=== PATIENT | female | born 1965 | race Caucasian/White ===

== ENCOUNTER 2017-02-08 17:24 | Emergency (ER) | payer OTHER ==
[~2017-02-08] VITALS: Ht 165.1 cm; Wt 96.4 kg
[2017-02-08 17:26] VITALS: TEMP 36.9; Ht 165.1 cm; Wt 96.4 kg
[2017-02-08] MEDS ORDERED: METHYLPREDNISOLONE 125 MG VIAL IM STA (17:42)
[2017-02-08] MEDS ORDERED: KETOROLAC TROMETHAMINE 60 MG/2 ML VIAL IM STA (17:42)
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
[2017-02-08] MEDS ORDERED: ASPI81TA28 PO (18:14)
[2017-02-08] MEDS ORDERED: LISI-461 PO (18:14)
[2017-02-08] MEDS ORDERED: METH4PAK PO (18:42)
[2017-02-08 18:49] VITALS: BP 128/65; PULSE 83; O2SAT 99
== END 2017-02-08 18:50 | disposition home or self-care (01) ==
LOC: C.EDB 17:25 → C.EDA 18:50
DX: M54.5 Low back pain (principal); M53.3 Sacrococcygeal disorders, not elsewhere classified; J45.909 Unspecified asthma, uncomplicated; F17.200 Nicotine dependence, unspecified, uncomplicated; Z79.82 Long term (current) use of aspirin; Z79.899 Other long term (current) drug therapy; Z88.2 Allergy status to sulfonamides; Z83.3 Family history of diabetes mellitus; Z82.49 Family history of ischemic heart disease and other diseases of the circulatory system

== ENCOUNTER 2017-02-10 07:34 | Emergency (ER) | payer OTHER ==
[~2017-02-10] VITALS: Ht 165.1 cm; Wt 95.5 kg
[~2017-02-10 07:34] MED LIST: ASPI81TA28 PO; LISI-461 PO; METH4PAK PO
[2017-02-10 07:38] VITALS: TEMP 36.7; Ht 165.1 cm; Wt 95.5 kg
[2017-02-10] MEDS ORDERED: ALUMINUM/MAGNESIUM SUSP 30 ML UDC PO STA (08:05)
[2017-02-10] MEDS ORDERED: LIDOCAINE HCL 2% VISC SOLN 20 ML UDC PO STA (08:05)
--- NOTE | 2017-02-10 08:17 | EMERGENCY ROOM VISIT NOTE ---
History Report prepared by Kee: Lilo Garrett Under the Supervision of: Dr. Sarika Templeton M.D. First contact with patient: 07:38 Chief Complaint: CARDIAC ASSESSMENT Stated Complaint: CHEST DISCOMFORT Nursing Triage Summary: PT reportst at 0700 she devloped mid sternal chest discomfort sx lasted approx 15 mins "I think it was an anxiety reaction to the prednisone I am on. It was like I could feel it coming on but I couldn't stop it" Pt tearful on arrival History of Present Illness The patient is a 51 year old female who presents to the Emergency Room for a cardiac assessment of symptoms that started RECEPTIONIST AIRLINE LOUNGE. The patient came to the ED via ambulance from home. The patient states that she was getting ready for work when she felt like she was having an anxiety attack. The patient states that she experienced palpitations and it felt like her heart was "fast and beating through her chest." The palpitations lasted about 15 minutes. She adds that she smoked a cigarette this morning prior to her symptoms occurring. The patient states that she was just getting ready for work when her symptoms occurred and she was not experiencing anxiety. The patient states that she feels well now. She denies shortness of breath and lower extremity pain or edema. The patient is on a Medrol dose pack for inflammation in her back. She received a shot of prednisone in the ED for the inflammation 2 days ago. The patient took the first pill of the Medrol dose pack this morning. She states that she was going to take 2 pills in the morning, 1 at lunch time, 2 at dinner time, and 1 before bed. The patient denies previous surgeries, any history of blood clots, and any recent trips. Source of History: patient Onset: RECEPTIONIST AIRLINE LOUNGE Position: chest Quality: other (palpitations) Timing: resolved Associated Symptoms: No SOB Note: no lower extremity pain or edema Review of Systems See HPI for pertinent positives & negatives. A total of 10 systems reviewed and were otherwise negative. Past Medical & Surgical Medical Problems: (1) Asthma Family History Diabetes mellitus Heart disease Hypertension Social History Smoking Status: Current Every Day Smoker Alcohol Use: occasionally Drug Use: none Marital Status: in relationship Housing Status: lives with significant other Occupation Status: unemployed Current/Historical Medications Scheduled Aspirin (Aspirin Ec), 81 MG PO QPM Lisinopril (Zestril), 10 MG PO QAM Methylprednisolone (Medrol Dosepak), 0 PO DAILY Allergies Coded Allergies: Sulfa Antibiotics (Unverified Allergy, Intermediate, ANXIETY ATTACK, ) Physical Exam Vital Signs Date Time Temp Pulse Resp B/P (MAP) Pulse Ox O2 Delivery O2 Flow Rate FiO2 02/10/17 10:26 65 20 107/52 97 02/10/17 09:35 59 20 118/73 97 Room Air 02/10/17 07:45 77 02/10/17 07:38 36.7 82 20 155/81 99 Room Air Physical Exam Vital signs reviewed. General: Well-appearing female, in no significant distress. HEENT: No scleral icterus, PERRLA, neck supple. Atraumatic. Cardiovascular: Regular rate and rhythm, no extra sounds. Pulmonary: Clear to auscultation bilaterally, normal work of breathing. Abdomen: Soft, nontender, nondistended, positive bowel sounds. Musculoskeletal: Atraumatic, no peripheral edema. Neurologic: Patient awake alert and oriented x 3 Skin: Warm, dry, no rash Medical Decision & Procedures ER Provider Diagnostic Interpretation: Radiology results as stated below per my review and radiologist interpretation: CHEST ONE VIEW PORTABLE FINDINGS: Cardiomediastinal silhouette normal. A few punctate hyperdensities in the right lower lung, possibly old granulomatous disease. Lungs and pleural spaces otherwise clear. Osseous structures and upper abdomen normal. IMPRESSION: 1. No acute cardiopulmonary disease. Electronically signed by: Rodney Barbour M.D. 02/10/2017 8:30 AM Dictated Date/Time: 02/10/2017 8:29 AM Laboratory Results 02/10/17 07:45 Red Blood Count 4.75, Mean Corpuscular Volume 88.0, Mean Corpuscular Hemoglobin 28.6, Mean Corpuscular Hemoglobin Concent 32.5, Mean Platelet Volume 9.6, Neutrophils (%) (Auto) 84.7, Lymphocytes (%) (Auto) 8.5, Monocytes (%) (Auto) 6.0, Eosinophils (%) (Auto) 0.1, Basophils (%) (Auto) 0.1, Neutrophils # (Auto) 14.66, Lymphocytes # (Auto) 1.47, Monocytes # (Auto) 1.04, Eosinophils # (Auto) 0.01, Basophils # (Auto) 0.01 02/10/17 07:45 Test 02/10/17 07:45 02/10/17 09:50 White Blood Count 17.29 K/uL (4.8-10.8) Red Blood Count 4.75 M/uL (4.2-5.4) Hemoglobin 13.6 g/dL (12.0-16.0) Hematocrit 41.8 % (37-47) Mean Corpuscular Volume 88.0 fL (80-100) Mean Corpuscular Hemoglobin 28.6 pg (25-34) Mean Corpuscular Hemoglobin Concent 32.5 g/dl (32-36) Platelet Count 399 K/uL (130-400) Mean Platelet Volume 9.6 fL (7.4-10.4) Neutrophils (%) (Auto) 84.7 % Lymphocytes (%) (Auto) 8.5 % Monocytes (%) (Auto) 6.0 % Eosinophils (%) (Auto) 0.1 % Basophils (%) (Auto) 0.1 % Neutrophils # (Auto) 14.66 K/uL (1.4-6.5) Lymphocytes # (Auto) 1.47 K/uL (1.2-3.4) Monocytes # (Auto) 1.04 K/uL (0.11-0.59) Eosinophils # (Auto) 0.01 K/uL (0-0.5) Basophils # (Auto) 0.01 K/uL (0-0.2) RDW Standard Deviation 44.1 fL (36.4-46.3) RDW Coefficient of Variation 13.6 % (11.5-14.5) Immature Granulocyte % (Auto) 0.6 % Immature Granulocyte # (Auto) 0.10 K/uL (0.00-0.02) Anion Gap 6.0 mmol/L (3-11) Est Creatinine Clear Calc Drug Dose 83.6 ml/min Estimated GFR () 83.6 Estimated GFR (Non- 72.2 BUN/Creatinine Ratio 23.8 (10-20) Calcium Level 9.1 mg/dl (8.5-10.1) Magnesium Level 2.0 mg/dl (1.8-2.4) Total Bilirubin 0.2 mg/dl (0.2-1) Direct Bilirubin < 0.1 mg/dl (0-0.2) Aspartate Amino Transf (AST/SGOT) 9 U/L (15-37) Alanine Aminotransferase (ALT/SGPT) 20 U/L (12-78) Alkaline Phosphatase 56 U/L (45-117) Total Creatine Kinase 46 U/L (26-192) Creatine Kinase MB 0.7 ng/ml (0.5-3.6) Creatine Kinase MB Ratio 1.5 (0-3.0) Total Protein 7.8 gm/dl (6.4-8.2) Albumin 3.5 gm/dl (3.4-5.0) Bedside Troponin I < 0.030 ng/ml (0-0.045) Laboratory results per my review. Medications Administered Medications (Trade) Dose Ordered Sig/Vini Route Start Time Stop Time Status Last Admin Dose Admin Lidocaine HCl (Viscous Lidocaine 2% Soln) 10 ml NOW STAT PO 02/10/17 08:05 02/10/17 08:08 DC 02/10/17 08:19 10 ML Al Hydroxide/Mg Hydroxide (Maalox Susp) 30 ml NOW STAT PO 02/10/17 08:05 02/10/17 08:08 DC 02/10/17 08:19 30 ML ECG Indication: palpitations Rate (beats per minute): 75 Rhythm: normal sinus Findings: no acute ischemic change, no ectopy ED Course 0802: Past medical records reviewed. The patient was evaluated in room B4. A complete history and physical examination was performed. 0805: Ordered Maalox Susp 30 ml PO, Lidocaine HCl 10 ml PO 0926: I reassessed the patient. She is having a repeat troponin drawn now. 1002: Upon reevaluation, the patient appeared to have improvement of her symptoms. I discussed findings with her. She verbalized agreement of the treatment plan. She was discharged home. Medical Decision Differential diagnoses includes acute coronary syndrome, pulmonary embolus, aortic dissection, musculoskeletal pain, pneumonia, pleural effusion, pneumothorax, gastritis, peptic ulcer disease. Medication Reconciliation: I attest that I have personally reviewed the patient' s current medication list. Blood Pressure Screening: Patient was found to have normal blood pressure on screening and does not require follow-up. This patient was evaluated and appears to be in no significant distress. IV access was obtained and laboratory work was drawn. The patient was placed on the data analytics analyst and found to be in a normal sinus rhythm. She was given a GI cocktail. EKG reveals no evidence of acute ischemia. Chest x-ray is clear. The patient did have some relief of her symptoms. A repeat troponin level was obtained and is negative. I suspect this is secondary to her Medrol Dosepak. She was advised to use Pepcid twice a day and she will stop the Medrol at her choosing. The patient will follow-up with her primary care physician this week and return to the ER for worsening of symptoms or any medical concerns. Impression Primary Impression: Palpitations Additional Impression: Medication side effect Scribe Attestation The scribe's documentation has been prepared under my direction and personally reviewed by me in its entirety. I confirm that the note above accurately reflects all work, treatment, procedures, and medical decision making performed by me. Departure Information Dispostion Home / Self-Care Referrals Sabi Berg M.D. (MEDICAL) (PCP) Forms IMPORTANT VISIT INFORMATION Patient Instructions [facility] Additional Instructions Stop taking the Medrol Dosepak. Pepcid 20 mg twice daily for 7 days, then as needed. Avoid ibuprofen, Aleve and aspirin. Do not drink alcohol, minimize coffee. Drink plenty of clear fluids. Return to the ED for worsening of symptoms or any medical concerns. Problem Qualifiers Additional Impression: Medication side effect Encounter type: initial encounter Qualified Codes: T88.7XXA - Unspecified adverse effect of drug or medicament, initial encounter
[2017-02-10 08:24] LABS: BASO % 0.1 %; BASO ABS # 0.01 K/uL (0-0.2); COMPLETE YES; EOS % 0.1 %; HEMATOCRIT 41.8 % (37-47); IG% 0.6 %; LYMPH % 8.5 %; LYMPH ABS # 1.47 K/uL (1.2-3.4); MEAN CORPUSCULAR HEMOGLOBIN 28.6 pg (25-34); MEAN CORPUSCULAR HGB CONC 32.5 g/dl (32-36); MEAN PLATELET VOLUME 9.6 fL (7.4-10.4); NEUT % 84.7 %; PLATELET COUNT 399 K/uL (130-400); RED BLOOD COUNT 4.75 M/uL (4.2-5.4); WHITE BLOOD COUNT 17.29 K/uL (4.8-10.8)
--- NOTE | 2017-02-10 08:31 | DIAGNOSTIC IMAGING REPORT ---
CHEST ONE VIEW PORTABLE CLINICAL HISTORY: 51 years-old Female presenting with CP, midsternal chest discomfort lasted approximately 15 minutes. TECHNIQUE: Portable upright AP view of the chest was obtained. COMPARISON: None. FINDINGS: Cardiomediastinal silhouette normal. A few punctate hyperdensities in the right lower lung, possibly old granulomatous disease. Lungs and pleural spaces otherwise clear. Osseous structures and upper abdomen normal. IMPRESSION: 1. No acute cardiopulmonary disease. Electronically signed by: Rodney Barbour M.D. 02/10/2017 8:30 AM Dictated Date/Time: 02/10/2017 8:29 AM
[2017-02-10 08:37] LABS: ALT/SGPT 20 U/L (12-78); AST/SGOT 9 U/L (15-37); BLOOD UREA NITROGEN 22 mg/dl (7-18); BUN/CREATININE RATIO 23.8 (10-20); CALCIUM 9.1 mg/dl (8.5-10.1); CARBON DIOXIDE 30 mmol/L (21-32); CHLORIDE 105 mmol/L (98-107); CREATININE 0.93 mg/dl (0.60-1.20); GLUCOSE 109 mg/dl (70-99); SODIUM 141 mmol/L (136-145)
[2017-02-10 08:42] LABS: ALKALINE PHOSPHATASE 56 U/L (45-117); CKMB/CK RATIO 1.5 (0-3.0)
[2017-02-10 10:26] VITALS: BP 107/52; PULSE 65; O2SAT 97
== END 2017-02-10 10:27 | disposition home or self-care (01) ==
LOC: EDBD 07:34 → C.EDB 07:36
DX: R00.2 Palpitations (principal); T88.7XXA Unspecified adverse effect of drug or medicament, initial encounter; X58.XXXA Exposure to other specified factors, initial encounter; J45.909 Unspecified asthma, uncomplicated; Z83.3 Family history of diabetes mellitus; Z82.49 Family history of ischemic heart disease and other diseases of the circulatory system; F17.200 Nicotine dependence, unspecified, uncomplicated; Z79.82 Long term (current) use of aspirin

== ENCOUNTER 2022-02-15 15:53 | Observation (INO) ==
[2022-02-15 17:48] LABS: Hematocrit (blood only) 42.1 % (34.1-44.9); Hemoglobin 13.8 g/dl (12.0-16.0); Mean Corpuscular Hemoglobin 29.2 pg (25.0-34.0); Mean Corpuscular Hgb Conc 32.8 g/dL (32.0-36.0); Mean Platelet Volume 9.6 fL (9.4-12.3); Platelet Count 298 K/uL (130-400); RDW Coefficient of Variation 13.4 % (11.5-14.5); RDW Standard Deviation 43.7 fL (36.4-46.3); Red Blood Count 4.73 M/uL (3.93-5.22); White Blood Count 6.88 K/ul (4.8-10.8)
[2022-02-15 18:12] LABS: Appearance Urine Clear (Clear); Bacteria Urine Automated Negative (Negative); Bilirubin Urine Negative (Negative); Blood Urine Trace (Negative); Color Urine Yellow; Glucose Urine UA Negative (Negative); Ketones Urine Negative (Negative); Leukocyte Esterase Urine Negative (Negative); Nitrite Urine Negative (Negative); Protein Urine Negative (Negative); RBC Urine Automated 0-4 /hpf (0-4); Specific Gravity Urine 1.005 (1.000-1.030); Urobilinogen Urine Negative (Negative); WBC Urine Automated 0 /hpf (0-5); pH Urine 5.5 (4.5-7.5)
[2022-02-15 18:15] LABS: Albumin Globulin Ratio 1.1 (0.9-2); Albumin Level 3.5 gm/dl (3.4-5.0); BUN Creatinine Ratio 18.7 (10-20); Bilirubin,Total 0.2 mg/dl (0.2-1.0); Calcium 8.3 mg/dl (8.5-10.1); Creatinine Clr Calc Pharmacy 72.8 ml/min; Est GFR (African American) 82.9 ml/min; Est GFR (Non-African American) 71.5 ml/min; Globulin 3.1 gm/dl (2.5-4.0); Potassium 3.9 mmol/L (3.5-5.1); Total Protein 6.6 gm/dl (6.0-8.3)
--- NOTE | 2022-02-15 18:32 | Emergency Department Note ---
Impression & Plan Acute hypotension, Acute right flank pain, Dizziness, COVID-19 ED Provider Note INFORMANT: Patient ED PROVIDER(S): Stoney Meier MD CHIEF COMPLAINT: Dizziness PLAN: Disposition: Admitted Condition: Good Outpatient prescription management: none Referral: None MEDICAL DECISION MAKING: Patient was presented due to dizziness. She is found to have hypotension. She had some nausea and minimal diarrhea. By history there is no significant points that were consistent with significant volume loss. She was orthostatic. She was hydrated. She was still experiencing mild hypotension. Additional fluids were given. The patient's CBC and chemistry panel were unremarkable. Urinalysis revealed no significant signs of infection. Troponin and D-dimer were negative. Patient had a COVID test performed and this was positive. Chest x-ray was unremarkable. The patient appears to be dealing with a COVID illness and has hypotension. Other diagnostic testing did not reveal any obvious etiology. Further management will be necessary in the hospital. Consultation was made with the [facility] service. Patient was evaluated in the ER and admitted for further management Triage Nursing notes reviewed and agree them. Vital Signs: reviewed and remarkable for hypotension Differential diagnosis: Renal colic, UTI, appendicitis, diverticulitis, mesenteric ischemia, aortic pathology, infections, inflammatory bowel disease, PUD, biliary pathology, as well as other pathologies. Diagnostics interpreted by me: EC Lead ECG performed and revealed Normal sinus rhythm at 70, left axis deviation, QRS normal. No elevation or depression. No PACs or PVCs Cardiac Monitoring: Cardiac monitoring ordered by me: The patient was placed on continuous cardiac monitoring and observed. It revealed a normal sinus rhythm at 80 beats per minute without ectopy or evidence of dysrhythmia. Imaging studies: Chest x-ray. Findings: A chest x-ray was performed and revealed no pneumothorax, effusion, infiltrate, pulmonary edema, free air under the diaphragm, or wide mediastinum. Impression: No acute disease. HPI: The patient is a 56 year old female who presents to the Emergency Room with complaints of low blood pressure. This started early this week and is persisting. The patient also notes the following associated symptoms, dizziness, right flank pain, nausea, diarrhea. The patient has seen urgent care and was started on augmentin for suspected UTI but cx was negative and was told to stop. Current pain is rated as 0/10. Pt denies LOC, headache, fevers, chills, diaphoresis, visual changes, neck pain, chest pain, breathing difficulties, vomiting,back pain, melena, hematochezia, other urinary symptoms, numbness, weakness, lymphadenopathy, rash, or other complaints. ROS: See above HPI for pertinent positives & negatives. A total of 10 systems reviewed and were otherwise negative. PAST MEDICAL HISTORY:See Below , asthma PAST SURGICAL HISTORY:See Below, FAMILY HISTORY:See Below SOCIAL HISTORY:See Below, employed HOME MEDICATIONS:See Below ALLERGIES:See Below VITALS:See Below PHYSICAL EXAMINATION: GENERAL: Awake, tired-appearing, in no distress HENT: Normocephalic, atraumatic. Oropharynx unremarkable. EYES: Normal conjunctiva. Sclera non-icteric. NECK: Inspection normal. Non-tender. Supple. No nuchal rigidity. FROM. No masses. RESPIRATORY: Clear to auscultation. No wheezes. No rales. Normal respiratory effort. CARDIAC: Normal rate. Normal rhythm. No murmurs. No rubs. Extremities warm and well perfused. Pulses equal. No JVD. GI: Soft, non-distended. Right flank tenderness to palpation. No rebound or guarding. No masses. RECTAL: Deferred. MUSCULOSKELETAL: Atraumatic. Chest examination reveals no tenderness. The back is symmetrical on inspection without obvious abnormality. There is no CVA tenderness to palpation. No joint edema. LOWER EXTREMITIES: Calves are equal size bilaterally and non-tender. No edema. No discoloration. NEURO: Normal sensorium. No sensory or motor deficits noted. SKIN: No rash or jaundice noted. Stoney Meier MD Past Med/Surg History Medical History Asthma Hypertension Hyperventilation syndrome Migraine Family History Other No pertinent family history in first degree relatives Social History Smoking Status: Current every day smoker Cigarettes Per Day: 10; Second Hand Exposure: No; Do You Dip or Chew Tobacco: No; Tobacco Cessation Education Requested by Patient: No Hx Alcohol Use: Yes Alcohol type: beer Hx Substance Use: No Preferred Language: Irish Communication Ability: Effective Export Specialist Required: No Beliefs That Will Affect Care: None Current Living Situation: Alone Other Information That Helps Us Care for You: No Feels Safe at Home: Yes Safety Concerns: Feels Safe At This Time Assistive Devices: Denture - Upper Assistive Devices Comment: Partial upper dentures Allergies Allergies Allergy/AdvReac Type Severity Reaction Status Date / Time Sulfa (Sulfonamide Allergy Intermediate ANXIETY Unverified 02/15/22 21:29 Antibiotics) ATTACK Home Meds Home Medications Medication Instructions Recorded Confirmed albuterol sulfate 90 mcg/actuation 2 puff inhalation Q6H PRN 03/05/19 02/15/22 aerosol inhaler (Ventolin HFA) Shortness Of Breath Or Wheezing aspirin 81 mg tablet,delayed 81 mg PO QAM 03/05/19 02/15/22 release fluticasone propionate 50 1 spray intranasal QA 03/05/19 02/15/22 mcg/actuation nasal spray,suspension (Flonase Allergy Relief) ibuprofen 200 mg tablet (Advil) 200 - 400 mg PO Q6H PRN Pain 03/05/19 02/15/22 lisinopril 10 mg tablet 20 mg PO QAM 03/05/19 02/15/22 multivitamin 1 tab PO QAM 03/05/19 02/15/22 ipratropium 0.5 mg-albuterol 3 mg 3 ml inhalation QID PRN Shortness 02/15/22 (2.5 mg base)/3 mL nebulization Of Breath Or Wheezing soln lisinopril 5 mg tablet 5 mg PO QAM 02/15/22 02/15/22 Results & Data (ED) Vital Signs Vital Signs - 24 hr 02/15/22 15:57 02/15/22 18:19 02/15/22 18:55 Temperature 36.4 C L Temperature Source Temporal Artery Scan Pulse Rate - Lying 68 Pulse Rate - Sitting 68 Pulse Rate - Standing 76 Pulse Rate 94 H Pulse Rate [Right Finger] 74 Respiratory Rate 18 18 Respiratory Effort / Characteristics Non-Labored Non-Labored Respiratory Depth Normal Normal Blood Pressure - Lying 98/56 L Blood Pressure - Sitting 89/57 L Blood Pressure- Standing 87/55 L Blood Pressure 131/85 Blood Pressure [Right Arm] 94/57 L Blood Pressure Mean 100 Blood Pressure Mean [Right Arm] 69 Pulse Oximetry 98 97 Oxygen Delivery Method Room Air Room Air Sepsis Recent Fever Within 48 Hours No Sepsis New/Unexplained Change in Mental Status No Sepsis Action Taken by Nursing No Action Required 02/15/22 20:30 Temperature Temperature Source Pulse Rate - Lying Pulse Rate - Sitting Pulse Rate - Standing Pulse Rate Pulse Rate [Right Finger] Respiratory Rate Respiratory Effort / Characteristics Respiratory Depth Blood Pressure - Lying Blood Pressure - Sitting Blood Pressure- Standing Blood Pressure Blood Pressure [Right Arm] 88/55 L Blood Pressure Mean Blood Pressure Mean [Right Arm] 66 Pulse Oximetry Oxygen Delivery Method Sepsis Recent Fever Within 48 Hours Sepsis New/Unexplained Change in Mental Status Sepsis Action Taken by Nursing Laboratory Data Result diagrams: 02/15/22 17:30 02/15/22 17:30 Lab Results 02/15/22 02/15/22 02/15/22 Range/Units 17:30 17:30 17:30 WBC 6.88 (4.8-10.8) K/ul RBC 4.73 (3.93-5.22) M/uL Hgb 13.8 (12.0-16.0) g/dl Hct 42.1 (34.1-44.9) % MCV 89.0 (80.0-100.0) fL MCH 29.2 (25.0-34.0) pg MCHC 32.8 (32.0-36.0) g/dL RDW Std Deviation 43.7 (36.4-46.3) fL RDW Coeff of Bladimir 13.4 (11.5-14.5) % Plt Count 298 (130-400) K/uL MPV 9.6 (9.4-12.3) fL Immature Gran % (Auto) 0.4 % Neut % (Auto) 55.5 % Lymph % (Auto) 32.4 % [place] % (Auto) 11.0 % Eos % (Auto) 0.4 % Baso % (Auto) 0.3 % Neut # (Auto) 3.81 (1.4-6.5) K/uL Lymph # (Auto) 2.23 (1.2-3.4) K/uL [place] # (Auto) 0.76 (0.24-0.82) K/uL Eos # (Auto) 0.03 (0-0.50) K/uL Baso # (Auto) 0.02 (0-0.2) K/uL Immature Gran # (Auto) 0.03 H (0.00-0.02) K/uL Tear Drop Cells 1+ Echinocytes 1+ D-Dimer (0-500) ug/L FEU Sodium 133 L (136-145) mmol/L Potassium 3.9 (3.5-5.1) mmol/L Chloride 103 (98-107) mmol/L Carbon Dioxide 22 (21-32) mmol/L Anion Gap 8 (3-11) BUN 17 (6-23) mg/dl Creatinine 0.91 (0.6-1.2) mg/dl Est Cr Clr Drug Dosing 72.8 ml/min Est GFR ( Amer) 82.9 ml/min Est GFR (Non-Af Amer) 71.5 ml/min BUN/Creatinine Ratio 18.7 (10-20) Glucose 108 H (70-99(Fasting)) mg/dl Calcium 8.3 L (8.5-10.1) mg/dl Total Bilirubin 0.2 (0.2-1.0) mg/dl AST 22 (13-39) U/L ALT 14 (7-52) U/L Alkaline Phosphatase 60 (34-104) U/L Troponin I High Sens (0-14) pg/ml Total Protein 6.6 (6.0-8.3) gm/dl Albumin 3.5 (3.4-5.0) gm/dl Globulin 3.1 (2.5-4.0) gm/dl Albumin/Globulin Ratio 1.1 (0.9-2) Urine Color Yellow Urine Appearance Clear (Clear) Urine pH 5.5 (4.5-7.5) Ur Specific [place] 1.005 (1.000-1.030) Urine Protein Negative (Negative) Urine Glucose (UA) Negative (Negative) Urine Ketones Negative (Negative) Urine Blood Trace H (Negative) Urine Nitrite Negative (Negative) Urine Bilirubin Negative (Negative) Urine Urobilinogen Negative (Negative) Ur Leukocyte Esterase Negative (Negative) Urine WBC (Auto) 0 (0-5) /hpf Urine RBC (Auto) 0-4 (0-4) /hpf U Hyaline Cast (Auto) 1-5 (0-5) /lpf U Epithel Cells (Auto) 10-20 H (0-5) /lpf Urine Bacteria (Auto) Negative (Negative) SARS-CoV-2, RNA, NAAT (NEGATIVE) 02/15/22 02/15/22 02/15/22 Range/Units 18:57 18:57 19:20 WBC (4.8-10.8) K/ul RBC (3.93-5.22) M/uL Hgb (12.0-16.0) g/dl Hct (34.1-44.9) % MCV (80.0-100.0) fL MCH (25.0-34.0) pg MCHC (32.0-36.0) g/dL RDW Std Deviation (36.4-46.3) fL RDW Coeff of Bladimir (11.5-14.5) % Plt Count (130-400) K/uL MPV (9.4-12.3) fL Immature Gran % (Auto) % Neut % (Auto) % Lymph % (Auto) % [place] % (Auto) % Eos % (Auto) % Baso % (Auto) % Neut # (Auto) (1.4-6.5) K/uL Lymph # (Auto) (1.2-3.4) K/uL [place] # (Auto) (0.24-0.82) K/uL Eos # (Auto) (0-0.50) K/uL Baso # (Auto) (0-0.2) K/uL Immature Gran # (Auto) (0.00-0.02) K/uL Tear Drop Cells Echinocytes D-Dimer 410 (0-500) ug/L FEU Sodium (136-145) mmol/L Potassium (3.5-5.1) mmol/L Chloride (98-107) mmol/L Carbon Dioxide (21-32) mmol/L Anion Gap (3-11) BUN (6-23) mg/dl Creatinine (0.6-1.2) mg/dl Est Cr Clr Drug Dosing ml/min Est GFR ( Amer) ml/min Est GFR (Non-Af Amer) ml/min BUN/Creatinine Ratio (10-20) Glucose (70-99(Fasting)) mg/dl Calcium (8.5-10.1) mg/dl Total Bilirubin (0.2-1.0) mg/dl AST (13-39) U/L ALT (7-52) U/L Alkaline Phosphatase (34-104) U/L Troponin I High Sens 8.1 (0-14) pg/ml Total Protein (6.0-8.3) gm/dl Albumin (3.4-5.0) gm/dl Globulin (2.5-4.0) gm/dl Albumin/Globulin Ratio (0.9-2) Urine Color Urine Appearance (Clear) Urine pH (4.5-7.5) Ur Specific [place] (1.000-1.030) Urine Protein (Negative) Urine Glucose (UA) (Negative) Urine Ketones (Negative) Urine Blood (Negative) Urine Nitrite (Negative) Urine Bilirubin (Negative) Urine Urobilinogen (Negative) Ur Leukocyte Esterase (Negative) Urine WBC (Auto) (0-5) /hpf Urine RBC (Auto) (0-4) /hpf U Hyaline Cast (Auto) (0-5) /lpf U Epithel Cells (Auto) (0-5) /lpf Urine Bacteria (Auto) (Negative) SARS-CoV-2, RNA, NAAT POSITIVE A* (NEGATIVE) Administered Medications Enoxaparin Sodium (Enoxaparin Inj 40 Mg/0.4 Ml Syr) 40 mg SQ PM MISAEL Stop: 03/17/22 23:05 Last Admin: 02/15/22 23:52 Dose: 40 mg Documented By: KIKO Sodium Chloride (Nss 1000ml) 1,000 mls @ 125 mls/hr IV .Q8H MISAEL Stop: 03/17/22 23:05 Last Admin: 02/15/22 23:52 Dose: 125 mls/hr Documented By: KIKO Discontinued Medications Sodium Chloride (Nss 1000ml) 1,000 mls @ 999 mls/hr IV .Q1H1M ONE Stop: 02/15/22 19:33 Last Infusion: 02/15/22 20:20 Dose: 0 mls/hr Documented By: Admin: 02/15/22 19:19 Dose: 999 mls/hr Documented By: MES Sodium Chloride (Nss 1000ml) 1,000 mls @ 999 mls/hr IV .Q1H1M ONE Stop: 02/15/22 21:33 Last Infusion: 02/15/22 21:52 Dose: 0 mls/hr Documented By: Admin: 02/15/22 20:50 Dose: 999 mls/hr Documented By: MES Sodium Chloride (Nss) 500 mls @ 500 mls/hr IV .Q1H MISAEL Stop: 02/16/22 00:05 Last Infusion: 02/16/22 01:00 Dose: 0 mls/hr Documented By: Admin: 02/15/22 23:52 Dose: 500 mls/hr Documented By: KIKO Ioversol (Optiray 320 100ml) 93 ml IV ONCE ONE Stop: 02/15/22 19:50 Last Admin: 02/15/22 19:50 Dose: 93 ml Documented By: [facility] Imaging Data Radiologist's Impression: Abdomen/Pelvis CT 02/15/22 19:30 CT abd pelvis IV con only CLINICAL HISTORY: right flank pain, hypotension TECHNIQUE: Helical axial images of the abdomen and pelvis were obtained and displayed. Automated dose lowering techniques and/or adjustment according to patient size were utilized for this exam. This exam was performed with intravenous contrast. CT DOSE: 736.15 mGy.cm COMPARISON: None available at the time of this dictation. FINDINGS: Lower chest: No acute abnormality Liver: Unremarkable. No focal lesions are seen. Gallbladder and biliary tree: Numerous stones are in the gallbladder neck. No gallbladder wall thickening is seen. No intra- or extrahepatic biliary ductal dilation. Pancreas: Unremarkable, no focal lesions. Spleen: Unremarkable. Adrenals: Unremarkable. Kidneys and ureters: No acute abnormality and in particular no evidence of hydronephrosis. Bladder: Unremarkable. Reproductive organs: Unremarkable. Bowel: Diverticulosis is seen without evidence of diverticulitis. Patient is status post appendectomy. Calcific radiodensities is incidentally noted in the small bowel. Lymph nodes Retroperitoneal: Subcentimeter lymph nodes are noted. Subcentimeter del hepatis nodes are also seen. Pelvic: Unremarkable. Mesenteric: Subcentimeter lymph nodes are noted. Peritoneum: Normal. Vessels: Atherosclerotic calcifications are seen. Abdominal wall: Unremarkable. Bones: Degenerative changes in the visualized spine. Grade 1 anterolisthesis is seen at L4-L5 due to bilateral pars defects. IMPRESSION: No acute abnormalities and in particular no evidence of nephrolithiasis. ACT 112: Negative or not required by law. Electronically signed by: Josh Quinn M.D. 02/15/2022 8:15 PM Chest X-Ray 02/15/22 20:04 XR chest 1V portable CLINICAL HISTORY: hypotension, +covid TECHNIQUE: Single frontal radiograph of the chest was obtained. Comparison: Comparison is made to chest radiograph 06/18/2020 FINDINGS: No lines and tubes are seen. The cardiomediastinal silhouette is normal. The lungs are clear. No evidence of pleural effusion or pneumothorax. IMPRESSION: No radiographic evidence of pneumonia is seen. ACT 112: Negative or not required by law. Electronically signed by: Josh Quinn M.D. 02/15/2022 8:30 PM Discharge Plan Visit Data Chief Complaint: Hypotension Stated Complaint: LOW BP, DIZZY/WEAK/DIARRHEA ED Provider: Stoney Meier Discharge Problem: Acute hypotension, Acute right flank pain, Dizziness, COVID-19 Discharge Instructions Interventions: ED Discharge Assessment Last Done: 02/15/22 22:33
[2022-02-15] MEDS ORDERED: SODIUM CHLORIDE 0.9% 1000ML 1,000 ML IV ONE ×2 (18:33→20:33)
[2022-02-15 19:01] LABS: Basophils # (auto) 0.02 K/uL (0-0.2); Basophils % (auto) 0.3 %; Echinocytes 1+; Eosinophils # (auto) 0.03 K/uL (0-0.50); Eosinophils % (auto) 0.4 %; Immature Granulocytes # (auto) 0.03 K/uL (0.00-0.02); Immature Granulocytes % (auto) 0.4 %; Lymphocytes # (auto) 2.23 K/uL (1.2-3.4); Lymphocytes % (auto) 32.4 %; Monocytes # (auto) 0.76 K/uL (0.24-0.82); Neutrophils # (auto) 3.81 K/uL (1.4-6.5); Neutrophils % (auto) 55.5 %; Tear Drop Cells 1+
[2022-02-15 19:29] LABS: D Dimer 410 ug/L FEU (0-500)
[2022-02-15] MEDS ORDERED: OPTIRAY 320 100ml IV ONE (19:49)
--- NOTE | 2022-02-15 20:17 | CT Scan Report ---
CT abd pelvis IV con only CLINICAL HISTORY: right flank pain, hypotension TECHNIQUE: Helical axial images of the abdomen and pelvis were obtained and displayed. Automated dose lowering techniques and/or adjustment according to patient size were utilized for this exam. This e xam was performed with intravenous contrast. CT DOSE: 736.15 mGy.cm COMPARISON: None available at the time of this dictation. FINDINGS: Lower chest: No acute abnormality Liver: Unremarkable. No focal lesions are seen. Gallbladder and biliary tree: Numerous stones are in the gallbladder neck. No gallbladder wall thicke ted is seen. No intra- or extrahepatic biliary ductal dilation. Pancreas: Unremarkable, no focal lesions. Spleen: Unremarkable. Adrenals: Unremarkable. Kidneys and ureters: No acute abnormality and in particular no evidence of hydronephrosis. Bladder: Unremarkable. Reproductive organs: Unremarkable. Bowel: Diverticulosis is seen without evidence of diverticulitis. Patient is status post appendectomy . Calcific radiodensities is incidentally noted in the small bowel. Lymph nodes Retroperitoneal: Subcentimeter lymph nodes are noted. Subcentimeter del hepatis nodes are also seen . Pelvic: Unremarkable. Mesenteric: Subcentimeter lymph nodes are noted. Peritoneum: Normal. Vessels: Atherosclerotic calcifications are seen. Abdominal wall: Unremarkable. Bones: Degenerative changes in the visualized spine. Grade 1 anterolisthesis is seen at L4-L5 due to bilateral pars defects. IMPRESSION: No acute abnormalities and in particular no evidence of nephrolithiasis. ACT 112: Negative or not required by law. Electronically signed by: Josh Quinn M.D. 02/15/2022 8:15 PM
--- NOTE | 2022-02-15 20:32 | XRay Report ---
XR chest 1V portable CLINICAL HISTORY: hypotension, +covid TECHNIQUE: Single frontal radiograph of the chest was obtained. Comparison: Comparison is made to chest radiograph 06/18/2020 FINDINGS: No lines and tubes are seen. The cardiomediastinal silhouette is normal. The lungs are clear. No evid ence of pleural effusion or pneumothorax. IMPRESSION: No radiographic evidence of pneumonia is seen. ACT 112: Negative or not required by law. Electronically signed by: Josh Quinn M.D. 02/15/2022 8:30 PM
--- NOTE | 2022-02-15 22:59 | History and Physical Report ---
DATE OF ADMISSION: 02/15/2022. CHIEF COMPLAINT: Dizziness and hypotension. HISTORY OF PRESENT ILLNESS: A 56-year-old female with past medical history significant for mild intermittent asthma and allergic rhinitis, essential hypertension, diastolic dysfunction, left ventricular hypertrophy, anxiety, tobacco use disorder, presents with dizziness and hypotension. The patient states since the last friday, she was feeling dizzy and she checked her blood pressure, it was running low. She states she did not take her blood pressure medication yesterday, but today she took her blood pressure medication, but her symptoms are not getting better, so she came into the ER and she was also found to be COVID positive. The patient does not have any fever or chills. No cough, no chest pain, no shortness of breath, no nausea, no vomiting. Had mild diarrhea. No abdominal pain. Appetite is not that great, but she is eating okay. Denies any headache. No weakness. No blurred visions, no earache, no runny nose, no sore throat. Currently, resting comfortably, hemodynamically stable. The patient is afebrile. The patient is not COVID vaccinated. ALLERGIES: ALLERGIES TO SULFA ANTIBIOTICS, PREDNISONE, METHYLTESTOSTERONE. PAST MEDICAL HISTORY: As mentioned above. PAST SURGICAL HISTORY: Appendectomy, colonoscopy, reconstruction of bowel surgery, EGDs, knee reconstruction, tonsillectomy and adenoidectomy. MEDICATIONS: The patient is on albuterol 2 puffs inhalation q.6 hours p.r.n., aspirin 81 mg p.o. a.m., Flonase 1 spray intranasal a.m., Advil p.r.n., DuoNebs q.i.d. p.r.n., lisinopril 25 mg p.o. a.m., multivitamin 1 tablet p.o. a.m. FAMILY HISTORY: Significant for father has alcoholism, hypertension, stroke; sister has stroke, diabetes; paternal grandmother had breast cancer; paternal grandfather had stroke; maternal grandfather had stroke, hypertension, heart disorder; maternal grandmother had diabetes, heart disorder, obesity. SOCIAL HISTORY: . Smokes half pack a day for 32 years. Alcohol twice a week. No drug use. REVIEW OF SYSTEMS: As per HPI. Rest of review is negative. PHYSICAL EXAMINATION: GENERAL: The patient is obese, not in acute distress. VITAL SIGNS: Temperature 36.4, pulse 74, respiratory rate 18, blood pressure 80/55, oxygen 97% on room air. HEENT: Pupils equal, round and reactive to light. Oral mucosa is moist. NECK: No JVD or neck masses. CARDIOVASCULAR: S1 and S2 heard. Regular rate and rhythm. No murmur, no gallop. RESPIRATORY SYSTEM: Normal AP diameter. No accessory muscle use. No wheezing, no crackles. ABDOMEN: Soft, bowel sounds present, nontender, no distention. CENTRAL NERVOUS SYSTEM: Cranial nerves II through XII are grossly intact, nonfocal. EXTREMITIES: No edema, no erythema. LABORATORY DATA: WBC 6.8, hemoglobin 13.8, hematocrit 42.1, platelets 298, D- dimer 410. Sodium 133, potassium 3.9, chloride 103, bicarbonate 22, BUN 17, creatinine 0.9, serum glucose 108, calcium 8.3, total bilirubin 0.2, AST 22, ALT 14, alkaline phosphatase 60. Troponin I high sensitivity was 8.1. Urinalysis negative. SARS-CoV-2 rapid test positive. IMAGING DATA: Chest x-ray, no acute findings. CT of abdomen and pelvis with IV contrast only, no acute findings. EKG: Normal sinus rhythm at a rate of 70, no significant change was found. ASSESSMENT AND PLAN: This 56-year-old female presents with dizziness from hypotension. 1. Dizziness, hypotension, COVID positive. The patient does not have significant nausea, vomiting. Her appetite is not good, but is eating okay. She has mild diarrhea. Orthostatic positive in the ER. We will continue with IV fluids. Check orthostatics. If any concern or not improving , we will get an echocardiogram. Closely monitor in the [facility]. We will check random cortisol level in the a.m. 2. COVID. The patient is not vaccinated. The patient with risk factors of asthma, hypertension, diastolic dysfunction, tobacco abuse. As the patient is not vaccinated with the risk factors, can consider 3 days of remdesivir . 3 Hypertension. Hold lisinopril, the patient is currently hypotensive. 4. Asthma, intermittent. Currently stable. Continue home inhalers. 5. Diastolic dysfunction. As the patient is getting fluids, we will monitor for any volume overload. 6. Tobacco abuse: Needs counseling. 7. Deep venous thrombosis prophylaxis: Lovenox. DISPOSITION: Admit to [facility]. PT/OT prior to discharge. Social service to help with discharge planning. Job ID: [id number] [email or web address]
[2022-02-15] MEDS ORDERED: ALBUT/IPRATROP 3MG/0.5MG NEB 3 ML VIAL INH PRN (23:06)
[2022-02-15] MEDS ORDERED: SODIUM CHLORIDE 0.9% 500 ML IV SCH (23:06)
[2022-02-15] MEDS ORDERED: NITROGLYCERIN SL 0.4 MG/TAB TAB SL PRN (23:06)
[2022-02-15] MEDS ORDERED: POLYETHYLENE (MIRALAX) 17 GM PACK PO PRN (23:06)
[2022-02-15] MEDS ORDERED: ENOXAPARIN INJ 40 MG/0.4 ML SYR SQ SCH (23:06)
[2022-02-15] MEDS ORDERED: ALBUTEROL HFA 8 GM INHALER INH PRN (23:06)
[2022-02-15] MEDS ORDERED: ONDANSETRON INJ 2 MG/ML 2 ML VIAL IV PRN (23:06)
[2022-02-15] MEDS ORDERED: ACETAMINOPHEN 325 MG TAB PO PRN (23:06)
[2022-02-15] MEDS: SODIUM CHLORIDE 0.9% 1000ML 1,000 ML IV SCH (23:52)
[2022-02-16] MEDS: SODIUM CHLORIDE 0.9% 1000ML 1,000 ML IV SCH ×2 (08:05→16:11)
[2022-02-16] MEDS ORDERED: MULTIVITAMIN TAB PO SCH (09:00)
[2022-02-16] MEDS ORDERED: FLUTICASONE PROPIONATE NA SPR 16 GM BTL SCH (09:00)
[2022-02-16] MEDS ORDERED: ASPIRIN 81 MG ECTAB PO SCH (09:00)
--- NOTE | 2022-02-16 09:40 | Electrocardiogram Report ---
Test Reason : Blood Pressure : / mmHG Vent. Rate : 070 BPM Atrial Rate : 070 BPM P-R Int : 172 ms QRS Dur : 092 ms QT Int : 410 ms P-R-T Axes : 065 -37 021 degrees QTc Int : 442 ms Normal sinus rhythm Left axis deviation Abnormal ECG When compared with ECG of 18-JUN-2020 19:10, No significant change was found Confirmed by Giovanni Cantrell ([id number]) on 02/16/2022 9:39:28 AM Referred By: REFERRED SELF Confirmed By:Giovanni Cantrell
[2022-02-16] MEDS ORDERED: NICOTINE 7 MG/24 HR TDSY TD SCH (16:05)
--- NOTE | 2022-02-16 16:10 | Hospitalist Progress Note ---
Date of Service February 16, 2022 Assessment & Plan (1) Acute hypotension: Plan: This 56-year-old female presents with dizziness from hypotension. 1. Dizziness, hypotension, COVID positive. Orthostatic hypotension The patient does not have significant nausea, vomiting. Her appetite is not good, but is eating okay. She has mild diarrhea. Orthostatics positive in the ER. Received IV fluids. Repeat orthostatics negative today. AM cortisol normal Clinically improved, plan to DC home, hold lisinopril, check BP at home, and follow-up with PCP. If any recurrence, concern or not improving , we will get an echocardiogram. 2. COVID 19 positive. Currently breathing comfortably on room air, and saturating 98% The patient is not vaccinated. She is clinically improved, plan to discharge home, and follow-up with PCP 3 Hypertension. Hold lisinopril, the patient is currently hypotensive. Recommend to hold lisinopril for now, on discharge, check BP at home, and follow-up with PCP. 4. Asthma, intermittent. Currently stable. Continue home inhalers. 5. Diastolic dysfunction. received IVF, seems euvolemic now 6. Tobacco abuse: Provided nicotine patch and counseling. DVT prophylaxis: Lovenox. DISPOSITION: Plan to DC home Admission and Anticipated Discharge Date Admission Date: February 15, 2022 Subjective Pt seen in follow up of dizziness, hypotension, positive COVID status Positive orthostatic hypotension, on admission Currently sitting up in bed, in no acute distress Denies fevers, chills, chest pain or shortness of breath, cough dizziness, lightheadedness, nausea vomiting, abd. pain Received IV fluids, repeat orthostatics negative. Patient feels much improved. Review of Systems Review of Systems: All systems reviewed & are unremarkable except as noted in Subjective Physical Exam Physical Exam: GENERAL: WD/WN F in NAD HEENT: NC/AT. EOMI. Pupils equal, round and reactive to light. Oral mucosa is moist. NECK: No JVD or neck masses. CARDIOVASCULAR: S1 and S2 heard. Regular rate and rhythm. No murmur, no gallop. RESPIRATORY SYSTEM: Normal AP diameter. No accessory muscle use. No wheezing, no crackles. ABDOMEN: Soft, bowel sounds present, nontender, no distention. NEURO:Alert oriented, answers appropriately, no facial asymmetry, moves extremities EXTREMITIES: No edema, no erythema. Results & Data Results & Data ([facility]) Vital Signs (Past 12 Hours) Vital Signs Temp Pulse Pulse Resp BP Pulse Ox O2 Del Method 02/16/22 16:01 36.6 C 75 18 109/71 98 02/16/22 15:10 74 02/16/22 12:23 36.5 C 73 18 94/62 L 96 Room Air 02/16/22 08:11 36.7 C 68 18 104/67 98 Room Air 02/16/22 07:19 70 Laboratory Results 02/16/22 02/15/22 02/15/22 Range/Units 08:00 19:20 18:57 WBC (4.8-10.8) K/ul RBC (3.93-5.22) M/uL Hgb (12.0-16.0) g/dl Hct (34.1-44.9) % MCV (80.0-100.0) fL MCH (25.0-34.0) pg MCHC (32.0-36.0) g/dL RDW Std Deviation (36.4-46.3) fL RDW Coeff of Bladimir (11.5-14.5) % Plt Count (130-400) K/uL MPV (9.4-12.3) fL Immature Gran % (Auto) % Neut % (Auto) % Lymph % (Auto) % [place] % (Auto) % Eos % (Auto) % Baso % (Auto) % Neut # (Auto) (1.4-6.5) K/uL Lymph # (Auto) (1.2-3.4) K/uL [place] # (Auto) (0.24-0.82) K/uL Eos # (Auto) (0-0.50) K/uL Baso # (Auto) (0-0.2) K/uL Immature Gran # (Auto) (0.00-0.02) K/uL Tear Drop Cells Echinocytes D-Dimer (0-500) ug/L FEU Sodium (136-145) mmol/L Potassium (3.5-5.1) mmol/L Chloride (98-107) mmol/L Carbon Dioxide (21-32) mmol/L Anion Gap (3-11) BUN (6-23) mg/dl Creatinine (0.6-1.2) mg/dl Est Cr Clr Drug Dosing ml/min Est GFR ( Amer) ml/min Est GFR (Non-Af Amer) ml/min BUN/Creatinine Ratio (10-20) Glucose (70-99(Fasting)) mg/dl Calcium (8.5-10.1) mg/dl Total Bilirubin (0.2-1.0) mg/dl AST (13-39) U/L ALT (7-52) U/L Alkaline Phosphatase (34-104) U/L Troponin I High Sens 8.1 (0-14) pg/ml Total Protein (6.0-8.3) gm/dl Albumin (3.4-5.0) gm/dl Globulin (2.5-4.0) gm/dl Albumin/Globulin Ratio (0.9-2) Random Cortisol 10.49 mcg/dl Urine Color Urine Appearance (Clear) Urine pH (4.5-7.5) Ur Specific [place] (1.000-1.030) Urine Protein (Negative) Urine Glucose (UA) (Negative) Urine Ketones (Negative) Urine Blood (Negative) Urine Nitrite (Negative) Urine Bilirubin (Negative) Urine Urobilinogen (Negative) Ur Leukocyte Esterase (Negative) Urine WBC (Auto) (0-5) /hpf Urine RBC (Auto) (0-4) /hpf U Hyaline Cast (Auto) (0-5) /lpf U Epithel Cells (Auto) (0-5) /lpf Urine Bacteria (Auto) (Negative) SARS-CoV-2, RNA, NAAT POSITIVE A* (NEGATIVE) 02/15/22 02/15/22 02/15/22 Range/Units 18:57 17:30 17:30 WBC (4.8-10.8) K/ul RBC (3.93-5.22) M/uL Hgb (12.0-16.0) g/dl Hct (34.1-44.9) % MCV (80.0-100.0) fL MCH (25.0-34.0) pg MCHC (32.0-36.0) g/dL RDW Std Deviation (36.4-46.3) fL RDW Coeff of Bladimir (11.5-14.5) % Plt Count (130-400) K/uL MPV (9.4-12.3) fL Immature Gran % (Auto) % Neut % (Auto) % Lymph % (Auto) % [place] % (Auto) % Eos % (Auto) % Baso % (Auto) % Neut # (Auto) (1.4-6.5) K/uL Lymph # (Auto) (1.2-3.4) K/uL [place] # (Auto) (0.24-0.82) K/uL Eos # (Auto) (0-0.50) K/uL Baso # (Auto) (0-0.2) K/uL Immature Gran # (Auto) (0.00-0.02) K/uL Tear Drop Cells Echinocytes D-Dimer 410 (0-500) ug/L FEU Sodium 133 L (136-145) mmol/L Potassium 3.9 (3.5-5.1) mmol/L Chloride 103 (98-107) mmol/L Carbon Dioxide 22 (21-32) mmol/L Anion Gap 8 (3-11) BUN 17 (6-23) mg/dl Creatinine 0.91 (0.6-1.2) mg/dl Est Cr Clr Drug Dosing 72.8 ml/min Est GFR ( Amer) 82.9 ml/min Est GFR (Non-Af Amer) 71.5 ml/min BUN/Creatinine Ratio 18.7 (10-20) Glucose 108 H (70-99(Fasting)) mg/dl Calcium 8.3 L (8.5-10.1) mg/dl Total Bilirubin 0.2 (0.2-1.0) mg/dl AST 22 (13-39) U/L ALT 14 (7-52) U/L Alkaline Phosphatase 60 (34-104) U/L Troponin I High Sens (0-14) pg/ml Total Protein 6.6 (6.0-8.3) gm/dl Albumin 3.5 (3.4-5.0) gm/dl Globulin 3.1 (2.5-4.0) gm/dl Albumin/Globulin Ratio 1.1 (0.9-2) Random Cortisol mcg/dl Urine Color Yellow Urine Appearance Clear (Clear) Urine pH 5.5 (4.5-7.5) Ur Specific [place] 1.005 (1.000-1.030) Urine Protein Negative (Negative) Urine Glucose (UA) Negative (Negative) Urine Ketones Negative (Negative) Urine Blood Trace H (Negative) Urine Nitrite Negative (Negative) Urine Bilirubin Negative (Negative) Urine Urobilinogen Negative (Negative) Ur Leukocyte Esterase Negative (Negative) Urine WBC (Auto) 0 (0-5) /hpf Urine RBC (Auto) 0-4 (0-4) /hpf U Hyaline Cast (Auto) 1-5 (0-5) /lpf U Epithel Cells (Auto) 10-20 H (0-5) /lpf Urine Bacteria (Auto) Negative (Negative) SARS-CoV-2, RNA, NAAT (NEGATIVE) 02/15/22 Range/Units 17:30 WBC 6.88 (4.8-10.8) K/ul RBC 4.73 (3.93-5.22) M/uL Hgb 13.8 (12.0-16.0) g/dl Hct 42.1 (34.1-44.9) % MCV 89.0 (80.0-100.0) fL MCH 29.2 (25.0-34.0) pg MCHC 32.8 (32.0-36.0) g/dL RDW Std Deviation 43.7 (36.4-46.3) fL RDW Coeff of Bladimir 13.4 (11.5-14.5) % Plt Count 298 (130-400) K/uL MPV 9.6 (9.4-12.3) fL Immature Gran % (Auto) 0.4 % Neut % (Auto) 55.5 % Lymph % (Auto) 32.4 % [place] % (Auto) 11.0 % Eos % (Auto) 0.4 % Baso % (Auto) 0.3 % Neut # (Auto) 3.81 (1.4-6.5) K/uL Lymph # (Auto) 2.23 (1.2-3.4) K/uL [place] # (Auto) 0.76 (0.24-0.82) K/uL Eos # (Auto) 0.03 (0-0.50) K/uL Baso # (Auto) 0.02 (0-0.2) K/uL Immature Gran # (Auto) 0.03 H (0.00-0.02) K/uL Tear Drop Cells 1+ Echinocytes 1+ D-Dimer (0-500) ug/L FEU Sodium (136-145) mmol/L Potassium (3.5-5.1) mmol/L Chloride (98-107) mmol/L Carbon Dioxide (21-32) mmol/L Anion Gap (3-11) BUN (6-23) mg/dl Creatinine (0.6-1.2) mg/dl Est Cr Clr Drug Dosing ml/min Est GFR ( Amer) ml/min Est GFR (Non-Af Amer) ml/min BUN/Creatinine Ratio (10-20) Glucose (70-99(Fasting)) mg/dl Calcium (8.5-10.1) mg/dl Total Bilirubin (0.2-1.0) mg/dl AST (13-39) U/L ALT (7-52) U/L Alkaline Phosphatase (34-104) U/L Troponin I High Sens (0-14) pg/ml Total Protein (6.0-8.3) gm/dl Albumin (3.4-5.0) gm/dl Globulin (2.5-4.0) gm/dl Albumin/Globulin Ratio (0.9-2) Random Cortisol mcg/dl Urine Color Urine Appearance (Clear) Urine pH (4.5-7.5) Ur Specific [place] (1.000-1.030) Urine Protein (Negative) Urine Glucose (UA) (Negative) Urine Ketones (Negative) Urine Blood (Negative) Urine Nitrite (Negative) Urine Bilirubin (Negative) Urine Urobilinogen (Negative) Ur Leukocyte Esterase (Negative) Urine WBC (Auto) (0-5) /hpf Urine RBC (Auto) (0-4) /hpf U Hyaline Cast (Auto) (0-5) /lpf U Epithel Cells (Auto) (0-5) /lpf Urine Bacteria (Auto) (Negative) SARS-CoV-2, RNA, NAAT (NEGATIVE) Medications Administered Current Inpatient Medications Acetaminophen (Acetaminophen 325 Mg Tab) 650 mg PO Q4H PRN PRN Reason: Pain or Fever Stop: 03/17/22 23:05 Albuterol (Albuterol Hfa 8 Gm Inhaler) 2 puffs INH Q6H PRN PRN Reason: Shortness Of Breath Or Wheezin Stop: 03/17/22 23:05 Albuterol (Albut/Ipratrop 3mg/0.5mg Neb 3 Ml Vial) 3 ml INH QID PRN; Protocol PRN Reason: Shortness Of Breath Or Wheezing Stop: 03/17/22 23:05 Aspirin ([facility]spirin 81 Mg Ectab) [facility] [place] [facility] 03/18/22 08:59 Last Admin: 02/16/22 08:05 Dose: 81 mg Enoxaparin Sodium (Enoxaparin Inj 40 Mg/0.4 Ml Syr) 40 mg SQ PM [facility] Stop: 03/17/22 23:05 Last Admin: 02/15/22 23:52 Dose: 40 mg Fluticasone Propionate (Fluticasone Propionate Na Spr 16 Gm Btl) 1 sprays [facility] [place] [facility]: 03/18/22 08:59 Last Admin: 02/16/22 08:05 Dose: 1 sprays Sodium Chloride (Nss 1000ml) 1,000 mls @ 125 mls/hr IV .Q8H [facility] Stop: 03/17/22 23:05 Last Admin: 02/16/22 08:05 Dose: 125 mls/hr Miscellaneous (Remove Nicoderm Patch) 1 each N/A DAILY@0859 [facility] Stop: 03/19/22 08:58 Multivitamins (Multivitamin Tab) 1 tab [facility] [place] Stop: 03/18/22 08:59 Last Admin: 02/16/22 08:05 Dose: 1 tab Nicotine (Nicotine 7 Mg/24 Hr Tdsy) 7 mg [facility] [place] Stop: 03/18/22 16:04 Nitroglycerin (Nitroglycerin Sl 0.4 Mg/Tab Tab) 0.4 mg SL UD PRN PRN Reason: Chest Pain Stop: 03/17/22 23:05 Ondansetron HCl (Ondansetron Inj 2 Mg/Ml 2 Ml Vial) 4 mg IV Q6H PRN PRN Reason: Nausea Stop: 03/17/22 23:05 Polyethylene Glycol (Polyethylene (Miralax) 17 Gm Pack) 17 gm PO DAILY PRN PRN Reason: Constipation Stop: 03/17/22 23:05
--- NOTE | 2022-02-16 17:52 | Discharge Summary ---
Date of Service February 16, 2022 Admission HPI Per Admitting Provider A 56-year-old female with past medical history significant for mild intermittent asthma and allergic rhinitis, essential hypertension, diastolic dysfunction, left ventricular hypertrophy, anxiety, tobacco use disorder, presents with dizziness and hypotension. The patient states since the last friday, she was feeling dizzy and she checked her blood pressure, it was running low. She states she did not take her blood pressure medication yesterday, but today she took her blood pressure medication, but her symptoms are not getting better, so she came into the ER and she was also found to be COVID positive. The patient does not have any fever or chills. No cough, no chest pain, no shortness of breath, no nausea, no vomiting. Had mild diarrhea. No abdominal pain. Appetite is not that great, but she is eating okay. Denies any headache. No weakness. No blurred visions, no earache, no runny nose, no sore throat. Currently, resting comfortably, hemodynamically stable. The patient is afebrile. The patient is not COVID vaccinated. Admission Exam Per Admitting Provider GENERAL: The patient is obese, not in acute distress. VITAL SIGNS: Temperature 36.4, pulse 74, respiratory rate 18, blood pressure 80/55, oxygen 97% on room air. HEENT: Pupils equal, round and reactive to light. Oral mucosa is moist. NECK: No JVD or neck masses. CARDIOVASCULAR: S1 and S2 heard. Regular rate and rhythm. No murmur, no gallop. RESPIRATORY SYSTEM: Normal AP diameter. No accessory muscle use. No wheezing, no crackles. ABDOMEN: Soft, bowel sounds present, nontender, no distention. CENTRAL NERVOUS SYSTEM: Cranial nerves II through XII are grossly intact, nonfocal. EXTREMITIES: No edema, no erythema. Principal Diagnosis Orthostatic hypotension Positive COVID-19 Discharge Exam GENERAL: WD/WN F in NAD HEENT: NC/AT. EOMI. Pupils equal, round and reactive to light. Oral mucosa is moist. NECK: No JVD or neck masses. CARDIOVASCULAR: S1 and S2 heard. Regular rate and rhythm. No murmur, no gallop. RESPIRATORY SYSTEM: Normal AP diameter. No accessory muscle use. No wheezing, no crackles. ABDOMEN: Soft, bowel sounds present, nontender, no distention. NEURO:Alert oriented, answers appropriately, no facial asymmetry, moves extremities EXTREMITIES: No edema, no erythema. Discharge Data Allergies Allergy/AdvReac Type Severity Reaction Status Date / Time Sulfa (Sulfonamide Allergy Intermediate ANXIETY Unverified 02/15/22 21:29 Antibiotics) ATTACK Consultations 02/15/22 20:57 ED Decision to Admit Stat Ordered Studies 02/15/22 19:30 CT Abd and Pelvis [CT abd pelvis IV con only] Stat FINDINGS: Lower chest: No acute abnormality Liver: Unremarkable. No focal lesions are seen. Gallbladder and biliary tree: Numerous stones are in the gallbladder neck. No gallbladder wall thickening is seen. No intra- or extrahepatic biliary ductal dilation. Pancreas: Unremarkable, no focal lesions. Spleen: Unremarkable. Adrenals: Unremarkable. Kidneys and ureters: No acute abnormality and in particular no evidence of hydronephrosis. Bladder: Unremarkable. Reproductive organs: Unremarkable. Bowel: Diverticulosis is seen without evidence of diverticulitis. Patient is status post appendectomy. Calcific radiodensities is incidentally noted in the small bowel. Lymph nodes Retroperitoneal: Subcentimeter lymph nodes are noted. Subcentimeter del hepatis nodes are also seen. Pelvic: Unremarkable. Mesenteric: Subcentimeter lymph nodes are noted. Peritoneum: Normal. Vessels: Atherosclerotic calcifications are seen. Abdominal wall: Unremarkable. Bones: Degenerative changes in the visualized spine. Grade 1 anterolisthesis is seen at L4-L5 due to bilateral pars defects. IMPRESSION: No acute abnormalities and in particular no evidence of nephrolithiasis. CXR FINDINGS: No lines and tubes are seen. The cardiomediastinal silhouette is normal. The lungs are clear. No evidence of pleural effusion or pneumothorax. IMPRESSION: No radiographic evidence of pneumonia is seen. Hospital Course (1) Acute hypotension: This 56-year-old female presents with dizziness from hypotension. 1. Dizziness, hypotension, COVID positive. Orthostatic hypotension The patient does not have significant nausea, vomiting. Her appetite is not good, but is eating okay. She has mild diarrhea. Orthostatics positive in the ER. Received IV fluids. Repeat orthostatics negative today. AM cortisol normal Clinically improved, plan to DC home, hold lisinopril, check BP at home, and follow-up with PCP. If any recurrence, concern or not improving , we will get an echocardiogram. 2. COVID 19 positive. Currently breathing comfortably on room air, and saturating 98% The patient is not vaccinated. She is clinically improved, plan to discharge home, and follow-up with PCP 3 Hypertension. Hold lisinopril, the patient is currently hypotensive. Recommend to hold lisinopril for now, on discharge, check BP at home, and follow-up with PCP. 4. Asthma, intermittent. Currently stable. Continue home inhalers. 5. Diastolic dysfunction. received IVF, seems euvolemic now 6. Tobacco abuse: Provided nicotine patch and counseling. DVT prophylaxis: Lovenox. DISPOSITION: Plan to DC home Total Time Total Time Spent Total Time Spent (In Minutes): 40 Discharge Plan Discharge Items Patient Disposition: Home - Self-Care Reason For Visit: DIZZY, HYPOTENSION Discharge Diagnosis: Orthostatic hypotension Positive COVID-19 Activity: Per Instructions section Non-emergency contact: Primary Care Provider Call non-emergency contact if: you have any medication questions and your sym ptoms worsen Follow-up/Referrals: Lauren Schuler DO [Primary Care Provider] - Diet: Regular Addtl Attending Provider Instructions: Follow-up with primary care doctor within 1 week. For now, do not take lisinopril and monitor your blood pressure at home. Record your numbers and discuss them with your primary care doctor. Make sure to stay well-hydrated. Recommend to avoid any exertional activity for now. Recommend smoking cessation. Addtl Reference Library Assistant Provider Instructions: Coronavirus disease 2019 (COVID-19) is a virus that causes a respiratory illness. It is caused by a coronavirus called 2019 novel coronavirus (2019- nCoV). There are many types of coronavirus. Coronaviruses are a very common cause of bronchitis. They may sometimes cause lung infection(pneumonia). Symptoms can range from mild to severe respiratory illness. These viruses are also foundin some animals. COVID-19 was first found in people in [facility], in late 2019. In 2020, several cases of COVID-19 have been confirmed in the [place] Public health officials are working to find the source. How the virus spreads is not yet fully known. It may be spread through droplets of fluid that a person coughs or sneezes into the air. It may be spread if you touch a surface with virus on it, such as a handle or object, and then touch your mouth. What are the symptoms of COVID-19? Some people have no symptoms or mild symptoms. Symptoms may appear 2 to 14 days after contact with the virus. Symptoms can include: Fever Coughing Trouble breathing What are possible complications from COVID-19? In many cases, this virus can cause infection (pneumonia) in both lungs. In some cases, this can cause . How is COVID-19 diagnosed? Your healthcare provider will ask about your symptoms. He or she will also ask about your recent travel and contact with sick people. Testing for the virus is only done through the CDC. If yourhealthcare provider thinks you may have COVID- 19, he or she will work with your local health department and the CDC on testing. Follow all instructions from your healthcare provider. COVID-19 is diagnosed by: Nasal and throat swab. A cotton-tipped swab is wiped inside your nose or throat. This is done to check for viruses in your nasal mucus. Sputum culture. A small sample of mucus coughed from your lungs (sputum) is collected if you have a cough. It is checked for the virus. How is COVID-19 treated? There is currently no medicine to treat the virus. Treatment is done to help your body while it fights the virus. This is known as supportive care. Supportive care may include: Pain medicine. These include acetaminophen and ibuprofen. They are used to help ease pain and reduce fever. Bed rest. This helps your body fight the illness. For severe illness, you may need to stay in the hospital. Care during severe illness may include: IV (intravenous) fluids.These are given through a vein to help keep your body hydrated. Oxygen. Supplemental oxygen or ventilation with a breathing machine (ventilator) may be given. This is done to keep enough oxygen in your body. Are you at risk for COVID-19? If youve been to a place where people have been sick with this virus, you are at risk for infection. You are at risk if you: Recently traveled to an affected area Had contact with a sick person who recently traveled to this area Had contact with a person who was diagnosed with COVID-19 How can COVID-19 be prevented? There is no vaccine yet. The best prevention is to not have contact with the virus. The CDC advises that people should not travel to areas where there are COVID-19 outbreaks right now for any reason that is not urgent. To help prevent spreading the infection, wash your hands often, or use an a lcohol-basedhand pathology manager. If you are in an area with COVID-19: Wash your hands often. Or use an alcohol-based hand pathology manager often. Only touch your eyes, nose, or mouth with clean hands. Dont have contact with people who are sick. Follow local instructions about being in public. For example, you may be told to not use public transport for a period of time. Stay away from markets that have live or animals. Wash your hands after touching any animals. Don't touch animals that may be sick. Dont share eating or drinking tools with sick people. Dont kiss someone who is sick. Clean surfaces often with disinfectant. If you were in an area with COVID-19 in the last 14 days: Call your healthcare provider. He or she can talk with local health staff to see what action may be needed. Follow all instructions from your provider. Take your temperature every morning and evening for at least 14 days. This is to check for fever. Keep a record of the readings. Keep watch for symptoms of the virus. Tell your provider right away if you have symptoms. If you were in an area with COVID-19 and have a fever or other symptoms: Dont panic. Keep in mind that other illnesses can cause similar symptoms. Stay away from work, school, and public places. Limit physical contact with family members. Don't kiss anyone or share eating or drinking utensils. Clean surfaces you touch with disinfectant. This is to help prevent the virus from spreading. Call your healthcare provider. Explain that you have been exposed to COVID-19 and have symptoms. Do this before going to any hospital. Wait for instructions. Keep in mind that healthcare staff may wear protective equipment such as masks, gowns, gloves, and eye protection. You may be put in a separate room. This is to prevent the possible virus from spreading. Tell the healthcare staff about recent travel. This includes local travel on public transport. Staff may need to find other people you have been in contact with. Follow all instructions the healthcare staff give you. If you have been diagnosed with COVID-19 Follow all instructions from your healthcare provider. Dont leave your home, except to get medical care. Call your healthcare providers office before going. They can prepare and give you instructions. This will help prevent the virus from spreading. Dont go to work, school, or public areas. Dont use public transport or taxis. Stay away from other people in your home. Have them wear face masks around you. Dont share household items or food. Wear a face mask if you can. This includes at home or in a medical facility. Cover your face with a tissue when you cough or sneeze. Throw the tissue away. Wash your hands. Wash your hands often. Caregivers should: Follow all instructions from healthcare staff. Wear a face mask and protective clothing as advised. Wash hands often. Keep track of the sick persons symptoms. Clean surfaces, fabrics, and laundry thoroughly. Keep other people away from the sick person. When to call your healthcare provider Call your healthcare provider: If youve recently traveled and have symptoms If you have been diagnosed with COVID-19 and your symptoms are worse To learn more To find out more about COVID-19, visit the CDC website at www.cdc.gov/coronavirus/2019-ncov/index.html. The [employer]. [address] [place] [address]. All rights reserved. This information is not intended as a substitute for professional medical care. Always follow your healthcare professional's instructions. This information has been adapted from [employer] Home Isolation COVID-19 Instructions The following information about Home Isolation is from the CDC Website: https://www.cdc.gov/coronavirus/2019-ncov/hcp/miorhyjh-usmvbif-ceqmob.html Stay home except to get medical care People who are mildly ill with COVID-19 are able to isolate at home during their illness. You should restrict activities outside your home, except for getting medical care. Do not go to work, school, or public areas. Avoid using public transportation, ride-sharing, or taxis. Separate yourself from other people and animals in your home People: As much as possible, you should stay in a specific room and away from other people in your home. Also, you should use a separate bathroom, if available. Animals: You should restrict contact with pets and other animals while you are sick with COVID-19, just like you would around other people. Although there have not been reports of pets or other animals becoming sick with COVID-19, it is still recommended that people sick with COVID-19 limit contact with animals until more information is known about the virus. When possible, have another member of your household care for your animals while you are sick. If you are sick with COVID-19, avoid contact with your pet, including petting, snuggling, being kissed or licked, and sharing food. If you must care for your pet or be around animals while you are sick, wash your hands before and after you interact with pets and wear a face mask. Call ahead before visiting your doctor If you have a medical appointment, call the healthcare provider and tell them that you have or may have COVID-19. This will help the healthcare providers office take steps to keep other people from getting infected or exposed. Wear a face mask You should wear a face mask when you are around other people (e.g., sharing a room or vehicle) or pets and before you enter a healthcare providers office. If you are not able to wear a face mask (for example, because it causes trouble breathing), then people who live with you should not stay in the same room with you, or they should wear a face mask if they enter your room. Cover your coughs and sneezes Cover your mouth and nose with a tissue when you cough or sneeze. Throw used tissues in a lined trash can. Immediately wash your hands with soap and water for at least 20 seconds or, if soap and water are not available, clean your hands with an alcohol-based hand pathology manager that contains at least 60% alcohol. Clean your hands often Wash your hands often with soap and water for at least 20 seconds, especially after blowing your nose, coughing, or sneezing; going to the bathroom; and before eating or preparing food. If soap and water are not readily available, use an alcohol-based hand pathology manager with at least 60% alcohol, covering all s urfaces of your hands and rubbing them together until they feel dry. Soap and water are the best option if hands are visibly dirty. Avoid touching your eyes, nose, and mouth with unwashed hands. Avoid sharing personal household items You should not share dishes, drinking glasses, cups, eating utensils, towels, or bedding with other people or pets in your home. After using these items, they should be washed thoroughly with soap and water. Clean all high-touch surfaces everyday High touch surfaces include counters, tabletops, doorknobs, bathroom fixtures, toilets, phones, keyboards, tablets, and bedside tables. Also, clean any surfaces that may have blood, stool, or body fluids on them. Use a household cleaning spray or wipe, according to the label instructions. Labels contain instructions for safe and effective use of the cleaning product including precautions you should take when applying the product, such as wearing gloves and making sure you have good ventilation during use of the product. Monitor your symptoms Seek prompt medical attention if your illness is worsening (e.g., difficulty breathing).Beforeseeking care, call your healthcare provider and tell them that you have, or are being evaluated for, COVID-19. Put on a face mask before you enter the facility. These steps will help the healthcare providers office to keep other people in the office or waiting room from getting infected or exposed. Ask your healthcare provider to call the local or [facility] health depart ment. Persons who are placed under active monitoring or facilitated self- monitoring should follow instructions provided by their local health department or occupational health professionals, as appropriate. When working with your local health department check their available hours. If you have a medical emergency and need to call 911, notify the dispatch personnel that you have, or are being evaluated for COVID-19. If possible, put on a face mask before emergency medical services arrive. Discontinuing home isolation Patients with confirmed COVID-19 should remain under home isolation precautions until the risk of secondary transmission to others is thought to be low. The decision to discontinue home isolation precautions should be made on a [id number] basis, in consultation with healthcare providers and [facility] and [place] [facility] departments. Pending Studies at Discharge: No Stand-Alone Forms: [facility] [employer], Smoking Cessation Medications and DC Order Prescriptions: Continued multivitamin Tablet 1 tab PO QAM aspirin 81 mg Tablet,Delayed Release (Dr/Ec) 81 mg PO QAM lisinopril 10 mg tablet 20 mg PO QAM Rx Instructions: take with 5 mg to =25mg ibuprofen [Advil] 200 mg Tablet 200 - 400 mg PO Q6H PRN (Reason: Pain) albuterol sulfate [Ventolin HFA] 90 mcg/actuation HFA aerosol inhaler 2 puff inhalation Q6H PRN (Reason: Shortness Of Breath Or Wheezing) fluticasone propionate [Flonase Allergy Relief] 50 mcg/actuation spray,suspension 1 spray intranasal QAM ipratropium-albuterol 0.5 mg-3 mg(2.5 mg base)/3 mL solution for nebulization 3 ml INHALATION QID PRN (Reason: Shortness Of Breath Or Wheezing) lisinopril 5 mg tablet 5 mg PO QAM Rx Instructions: take with 2, 10mg = 25mg Discharge Orders: Discharge Order (Routine); Ordered 02/16/22 Ordered By: Juan M Byrd Admission Data Admit Date/Time: 02/15/22 21:44 Attending Provider: Juan M Byrd Admit Provider: Red Berger Primary Care Provider: Lauren Schuler Other Providers: Red Berger Other Interventions: Discharge Summary Assessment (RN) Last Done: 02/16/22 16:19
== END 2022-02-16 17:10 | disposition home or self-care (01) | DRG 312 ==
LOC: ED 15:53 → 2W 21:44 → INTOOBSV 21:44 → 2W 22:33
DX: Z79.899 Other long term (current) drug therapy; Z88.8 Allergy status to other drugs, medicaments and biological substances; I95.1 Orthostatic hypotension; F17.210 Nicotine dependence, cigarettes, uncomplicated; U07.1 COVID-19; I10 Essential (primary) hypertension; N39.0 Urinary tract infection, site not specified; Z28.310 Unvaccinated for COVID-19; J45.20 Mild intermittent asthma, uncomplicated; Z79.82 Long term (current) use of aspirin; Z88.2 Allergy status to sulfonamides